=== PATIENT | female | born 1965 | race Two or more races ===

== ENCOUNTER 2025-05-31 07:22 | Outpatient (CLI) | payer OTHER | END 2025-05-31 07:23 | disposition home or self-care (01) | LOC: NUCLEAR 07:22 | PROVIDERS: ATTEND Internal Medicine | DX: C50.412 Malignant neoplasm of upper-outer quadrant of left female breast (principal) ==

== ENCOUNTER 2025-08-27 11:43 | Outpatient (CLI) | payer OTHER | END 2025-08-27 11:55 | disposition home or self-care (01) | LOC: MRI 11:43 | PROVIDERS: ATTEND Internal Medicine | DX: C50.412 Malignant neoplasm of upper-outer quadrant of left female breast (principal); C50.212 Malignant neoplasm of upper-inner quadrant of left female breast; C78.7 Secondary malignant neoplasm of liver and intrahepatic bile duct; C79.51 Secondary malignant neoplasm of bone; C79.31 Secondary malignant neoplasm of brain | CPT/HCPCS: 70553 ==